=== PATIENT | female | born 1935 | race Caucasian/White ===

== ENCOUNTER 2025-03-06 14:25 | Inpatient (IN) | payer MEDICARE, OTHER ==
[~2025-03-06] VITALS: Ht 160 cm; Wt 56.7 kg
[2025-03-06] MEDS ORDERED: APIX5TAB PO (15:04)
[2025-03-06] MEDS ORDERED: NA P133E RC (15:04)
[2025-03-06] MEDS ORDERED: GABA-532 PO (15:04)
[2025-03-06] MEDS ORDERED: ACET325T53 PO (15:04)
[2025-03-06] MEDS ORDERED: QUET50TA PO (15:04)
[2025-03-06] MEDS ORDERED: BISA10SU11 RC (15:04)
[2025-03-06] MEDS ORDERED: MAGN400O6 PO (15:04)
[2025-03-06] MEDS ORDERED: FERR325T24 PO (15:04)
[2025-03-06] MEDS ORDERED: DOCU250C14 PO (15:04)
[2025-03-06] MEDS ORDERED: MIRT7.5T10 PO (15:04)
[2025-03-06] MEDS ORDERED: DIVA-76 PO (15:04)
[2025-03-06 15:26] LABS: PLATELET COUNT (AUTO) 296 K/uL (150-450); RED BLOOD CELL COUNT(AUTO) 4.82 MIL/uL (4.0-5.2); RED CELL DISTRIBUTION WIDTH 16.2 % (11.5-15.0); WHITE BLOOD COUNT (AUTO) 11.5 K/uL (4.3-11.0)
[2025-03-06 15:45] LABS: CALCIUM, SERUM 8.5 mg/dL (8.5-10.1); CREATININE 0.7 mg/dL (0.6-1.3); SODIUM SERUM 137 mmol/L (136-145); UREA NITROGEN, BLOOD 22 mg/dL (7-18)
[2025-03-06 15:56] LABS: ASPARTATE AMINOTRANSFERASE 50 U/L (15-37); NT-PRO BNP 885 pg/mL (0-125); TOTAL PROTEIN, SERUM 7.4 g/dL (6.4-8.2)
[2025-03-06] MEDS ORDERED: ONDANSETRON HCL/PF 4 MG/2 ML VIAL IVP PRN (18:00)
[2025-03-06] MEDS ORDERED: MAGNESIUM HYDROXIDE 30 ML UDC PO PRN (18:00)
[2025-03-06] MEDS ORDERED: ACETAMINOPHEN 325 MG TABLET PO PRN ×2 (18:00)
[2025-03-06] MEDS ORDERED: NA PHOS,M-B/NA PHOS,DI-BA 1 EA ENEMA RC PRN (18:00)
[2025-03-06] MEDS ORDERED: BISACODYL SUPP (10 MG) 10 MG/SUPP.RECT SUPP.RECT RC PRN (18:00)
[2025-03-06] MEDS ORDERED: MAG HYDROX/AL HYDROX/SIMETH 30 ML UDC PO PRN (18:00)
[2025-03-06] MEDS ORDERED: Z GUARD REMEDY 4 OZ OINT TP PRN (18:00)
[2025-03-06 19:45] VITALS: BP 109/56; TEMP 98.4; O2SAT 95
[2025-03-06 20:00] VITALS: BP 109/56; TEMP 98.4; O2SAT 94
[2025-03-06] MEDS: QUETIAPINE FUMARATE 25 MG TABLET PO SCH (21:50)
[2025-03-06] MEDS: IV NS 0.9% 1,000 ML IV PRN (21:50)
[2025-03-06] MEDS: MIRTAZAPINE 15 MG TABLET PO SCH (21:51)
[2025-03-07 06:34] LABS: PLATELET COUNT (AUTO) 290 K/uL (150-450); RED BLOOD CELL COUNT(AUTO) 4.62 MIL/uL (4.0-5.2); RED CELL DISTRIBUTION WIDTH 15.8 % (11.5-15.0); WHITE BLOOD COUNT (AUTO) 7.6 K/uL (4.3-11.0)
[2025-03-07 07:20] LABS: CALCIUM, SERUM 8.7 mg/dL (8.5-10.1); CREATININE 0.8 mg/dL (0.6-1.3); PHOSPHORUS 3.1 mg/dL (2.5-4.9); SODIUM SERUM 143.0 mmol/L (136-145); UREA NITROGEN, BLOOD 19.0 mg/dL (7-18)
[2025-03-07 08:00] VITALS: BP 109/57; TEMP 98.2; O2SAT 95
[2025-03-07 08:35] LABS: EOSINOPHILS % (MANUAL) 1 % (0-4); LYMPHOCYTES % (MANUAL) 21 % (16-48); MONOCYTES % (MANUAL) 3 % (0-11.0); NEUTROPHILS % (MANUAL) 75 (42-76); PLATELET ESTIMATE ADEQUATE
[2025-03-07] MEDS: FERROUS SULFATE (325 MG) 325 MG/TAB TABLET PO SCH (09:10)
[2025-03-07] MEDS: GABAPENTIN 100 MG CAPSULE PO SCH (09:10)
[2025-03-07] MEDS: DIVALPROEX SODIUM 250 MG TABLET.DR PO SCH (09:10)
[2025-03-07] MEDS: DOCUSATE SODIUM 250 MG CAPSULE PO SCH (09:10)
[2025-03-07] MEDS: APIXABAN 5 MG TABLET PO SCH (09:11)
[2025-03-07 16:00] VITALS: BP 110/48; TEMP 98.8; O2SAT 93
[2025-03-07 20:00] VITALS: BP 110/50; TEMP 97.9; O2SAT 92
[2025-03-08 08:00] VITALS: BP 117/53; TEMP 98.5; O2SAT 94
[2025-03-08 16:00] VITALS: BP 118/57; TEMP 97.9; O2SAT 94
[2025-03-08 23:23] VITALS: BP 105/80; TEMP 97.9; O2SAT 93
[2025-03-09 06:23] LABS: PLATELET COUNT (AUTO) 365 K/uL (150-450); RED BLOOD CELL COUNT(AUTO) 4.86 MIL/uL (4.0-5.2); RED CELL DISTRIBUTION WIDTH 15.7 % (11.5-15.0); WHITE BLOOD COUNT (AUTO) 5.5 K/uL (4.3-11.0)
[2025-03-09 07:08] LABS: APPEARANCE,URINE CLEAR (CLEAR); BLOOD, URINE 1+ Ery/uL (NEGATIVE); LEUKOCYTE ESTERASE ,URINE NEGATIVE (NEGATIVE); NITRITE, URINE NEGATIVE (NEGATIVE); UGLUCOSE NEGATIVE (NEGATIVE)
[2025-03-09 07:10] LABS: ADD URINE CULTURE NO; SQUAMOUS EPITHELIAL CELL,UR Few /HPF (None Seen)
[2025-03-09 07:30] VITALS: BP 117/57; TEMP 98.1; O2SAT 96
[2025-03-09 10:33] LABS: CALCIUM, SERUM 8.3 mg/dL (8.5-10.1); CREATININE 0.7 mg/dL (0.6-1.3); SODIUM SERUM 144.0 mmol/L (136-145); UREA NITROGEN, BLOOD 20.0 mg/dL (7-18)
[2025-03-09 16:00] VITALS: BP 116/58; TEMP 99.3; O2SAT 94
== END 2025-03-09 16:50 | DRG 640 ==
LOC: ER 14:27 → MED 19:13
PROVIDERS: ADMIT Internal Medicine; ATTEND Internal Medicine
DX: E86.0 Dehydration (principal); G93.41 Metabolic encephalopathy; E44.0 Moderate protein-calorie malnutrition; F03.93 Unspecified dementia, unspecified severity, with mood disturbance; R53.1 Weakness; F03.90 Unspecified dementia, unspecified severity, without behavioral disturbance, psychotic disturbance, mood disturbance, and anxiety; Z79.899 Other long term (current) drug therapy; Z79.01 Long term (current) use of anticoagulants; I25.10 Atherosclerotic heart disease of native coronary artery without angina pectoris; D72.829 Elevated white blood cell count, unspecified; E88.09 Other disorders of plasma-protein metabolism, not elsewhere classified; K21.9 Gastro-esophageal reflux disease without esophagitis; M81.0 Age-related osteoporosis without current pathological fracture; F32.9 Major depressive disorder, single episode, unspecified; G62.9 Polyneuropathy, unspecified; Z68.22 Body mass index [BMI] 22.0-22.9, adult; Z20.822 Contact with and (suspected) exposure to COVID-19; G93.89 Other specified disorders of brain
CPT/HCPCS: 36415; 70450-TC; 71045-TC; 80048-TC; 80076-TC; 81001; 83735-TC; 83880; 84100-TC; 84484-TC; 85025-TC; 85027-TC; 87081-TC; 97110-TC; 97116-TC; 97530-TC; A4223; G0378; J7030